=== PATIENT | male | born 1975 | race Caucasian/White ===

== ENCOUNTER 2019-06-09 17:31 | Emergency (ER) | payer BC, OTHER ==
[2019-06-09 17:42] VITALS: BP 134/81; PULSE 73; RESP 18; TEMP 98.8
== END 2019-06-09 17:57 | disposition home or self-care (01) ==
LOC: EC 17:31
DX: Z02.9 Encounter for administrative examinations, unspecified (principal)

== ENCOUNTER → 2020-01-04 | Outpatient (CLI) | payer BC ==
--- NOTE | 2020-01-04 13:41 | MR ---
EXAMINATION TYPE: MR shoulder RT wo con DATE OF EXAM: 01/04/2020 COMPARISON: None HISTORY: 44-year-old male with right shoulder pain, fell off ladder 2 months ago TECHNIQUE: Multiplanar, multisequence imaging of the right shoulder is performed without contrast. FINDINGS: There is intermediate signal of the intracapsular portion of the long head biceps tendon. The extraca psular portion remains appropriately situated along the bicipital groove. Mild heterogeneity of the subscapularis tendon which remains intact. There is some soft tissue replacement in the region of the rotator cuff interval. No abnormal thicken ing of the axillary recess. Trace effusion within the subacromial/subdeltoid bursa. Heterogeneity of both supraspinatus and infraspinatus tendons. There is bursal sided fraying of the s upraspinatus tendon with shallow bursal sided tear of the mid fibers measuring 6 mm long by 8 mm AP. There is intrasubstance change at the footprint at the junction of the supraspinatus and infraspinatu s tendons. No high-grade partial or full-thickness tear. Heterogeneous signal within the superior glenoid labrum. No paralabral cyst. Glenohumeral joint appears intact. No joint effusion. No atrophy of the rotator cuff musculature. No Hill-Sachs deformity. An os acromiale is present. There is some edema on either side of the pseudo articulation and some corresponding bony irregularity. Mild degenerative joint space narrowing at the AC joint. Patchy red marrow can be seen with red marrow reconversion in the setting of anemia, smoking, and chr onic disease. IMPRESSION: 1. Supraspinatus and infraspinatus tendinosis. Bursal sided fraying of the supraspinatus tendon along with a shallow 8 x 6 mm bursal sided tear of the mid fibers. No high-grade partial or full-thickness rotator cuff tear. 2. Irregular signal within the superior labrum. SLAP tear not excluded. 3. Os acromiale with some associated marrow edema on either side of the pseudoarticulation. Findings may be reactive to abnormal movement. Correlate for any symptomatology here. 4. Soft tissue replacement in the rotator cuff interval may reflect sprains of the biceps austen or s ynovitis. 5. Mild intracapsular long head biceps tendinosis.
== END | disposition home or self-care (01) ==
LOC: RADMRIMAIN 11:45
PROVIDERS: ATTEND Orthopaedic Surgery
DX: M75.21 Bicipital tendinitis, right shoulder (principal); Z96.611 Presence of right artificial shoulder joint; S43.431D Superior glenoid labrum lesion of right shoulder, subsequent encounter

== ENCOUNTER 2020-07-25 23:29 | Emergency (ER) | payer BC ==
--- NOTE | 2020-07-25 23:52 | ED ---
Arrhythmia/Palpitations HPI - General Chief Complaint: Arrhythmia/Palpitations Stated Complaint: Abnormal heart rate Time Seen by Provider: 07/25/20 23:47 Source: patient Mode of arrival: ambulatory Limitations: no limitations - History of Present Illness Initial Comments: 's patient is a 45-year-old man who presents to have evaluation for rapid heartbeat that had come on earlier in the day, then had resolved but seemed to recur this evening. The patient does note that the symptoms have resolved by the time he is seen here. The patient did have a similar experience previously, was seen by Dr. Ghosh from cardiology, and was told that if he was having recurrences they could offer an ablation. The patient does not believe he had atrial fibrillation. Review of the record does reveal Holter monitor from September 2014 which did show PACs and PVCs, but no sustained arrhythmia. The patient denies chest pain, dyspnea, diaphoresis, orthopnea, lightheadedness or syncope. MD Complaint: palpitations -: hour(s) Context: occurred during rest Arrhythmia History: other Associated Symptoms: denies other symptoms - Related Data Allergies Allergy/AdvReac Type Severity Reaction Status Date / Time Sulfa (Sulfonamide Allergy Unknown Verified 07/25/20 23:41 Antibiotics) Childhood Review of Systems ROS Statement: Those systems with pertinent positive or pertinent negative responses have been documented in the HPI. ROS Other: All systems not noted in ROS Statement are negative. Constitutional: Denies: fever, chills Respiratory: Denies: cough, dyspnea Cardiovascular: Reports: palpitations. Denies: chest pain, dyspnea on exertion, orthopnea, edema, syncope Gastrointestinal: Denies: abdominal pain, nausea, vomiting, melena, hematochezia Genitourinary: Denies: dysuria, hematuria Musculoskeletal: Denies: back pain Skin: Denies: rash Neurological: Denies: headache, weakness Past Medical History Past Medical History: No Reported History History of Any Multi-Drug Resistant Organisms: None Reported Past Surgical History: Orthopedic Surgery Past Psychological History: No Psychological Hx Reported Smoking Status: Never smoker Past Alcohol Use History: Occasional Past Drug Use History: None Reported General Exam Limitations: no limitations General appearance: alert, in no apparent distress Head exam: Present: atraumatic, normocephalic Eye exam: Present: normal appearance. Absent: scleral icterus, conjunctival injection ENT exam: Present: normal oropharynx Neck exam: Present: normal inspection, full ROM Respiratory exam: Present: normal lung sounds bilaterally. Absent: respiratory distress, wheezes, rales, rhonchi, stridor Cardiovascular Exam: Present: regular rate, normal rhythm, normal heart sounds. Absent: systolic murmur, diastolic murmur, rubs, gallop GI/Abdominal exam: Present: soft. Absent: distended, tenderness, guarding, rebound, rigid, mass Extremities exam: Present: normal inspection, normal capillary refill, other (There is no right arm swelling. No palpable cord or discomfort. His surgical site looks well-healed). Absent: pedal edema, calf tenderness Back exam: Present: normal inspection. Absent: CVA tenderness (R), CVA tenderness (L) Neurological exam: Present: alert Skin exam: Present: warm, dry, intact, normal color, other (The patient has 2 areas of fading ecchymoses over the shoulder at the site of his surgery 2 weeks ago). Absent: rash Course Vital Signs 07/25/20 07/25/20 23:36 23:55 Temperature 98.5 F Pulse Rate 85 88 Respiratory 18 16 Rate Blood Pressure 135/81 140/72 O2 Sat by Pulse 98 99 Oximetry EKG Findings - EKG Results: EKG: interpreted by ERMD, sinus rhythm (With sinus arrhythmia, rate 74 bpm), normal ST/T - Blocks, [place], Hypertrophy, ST Abn: QRS axis and voltage: left axis deviation (-30 to -90) - TN, Pacemaker, Normal: Myocardial infarction: inferior TN (old age indeterminate) (Possible old inferior infarct.) Disposition Clinical Impression: Palpitations Disposition: HOME SELF-CARE Condition: Good Instructions (If sedation given, give patient instructions): Heart Palpitations (ED) Is patient prescribed a controlled substance at d/c from ED?: No Referrals: Jonnie Parker MD [Primary Care Provider] - 1-2 days Evaristo Ghosh MD [STAFF PHYSICIAN] - 1-2 days
[2020-07-26 00:07] VITALS: PULSE 88
[2020-07-26 00:24] LABS: Basophils # (A) 0.1 k/uL (0-0.2); Basophils % (A) 1 %; Eosinophils # (A) 0.5 k/uL (0-0.7); Eosinophils % (A) 3 %; HCT 41.7 % (39.0-53.0); HGB 14.7 gm/dL (13.0-17.5); Lymphocytes # (A) 1.3 k/uL (1.0-4.8); Lymphocytes % (A) 10 %; MCH 31.2 pg (25.0-35.0); MCHC 35.2 g/dL (31.0-37.0); MCV 88.7 fL (80.0-100.0); Mean Platelet Volume 8.1; Monocytes # (A) 0.5 k/uL (0-1.0); Monocytes % (A) 4 %; Neutrophils # (A) 11.2 k/uL (1.3-7.7); Neutrophils % (A) 82 %; Platelet Count 201 k/uL (150-450); RDW 12.1 % (11.5-15.5); WBC 13.6 k/uL (3.8-10.6)
[2020-07-26 00:27] LABS: ALT 29 U/L (4-49); AST 26 U/L (17-59); African American GFR (CKD) >90 (>60 ml/min/1.73 sqM); Albumin 4.4 g/dL (3.5-5.0); Alkaline Phosphatase 85 U/L (38-126); Anion Gap 9 mmol/L; Blood Urea Nitrogen 23 mg/dL (9-20); Calcium 9.3 mg/dL (8.4-10.2); Carbon Dioxide 23 mmol/L (22-30); Chloride 108 mmol/L (98-107); Glucose 106 mg/dL (74-99); Magnesium 1.8 mg/dL (1.6-2.3); Non-African American GFR(CKD) >90 (>60 ml/min/1.73 sqM); Potassium 4.1 mmol/L (3.5-5.1); Sodium 140 mmol/L (137-145); Total Bilirubin 0.4 mg/dL (0.2-1.3); Total Protein 7.2 g/dL (6.3-8.2)
--- NOTE | 2020-07-26 00:27 | XR ---
EXAM: XR Chest, 2 Views CLINICAL HISTORY: Dysrhythmia. TECHNIQUE: Frontal and lateral views of the chest. COMPARISON: No previous studies. FINDINGS: Lungs: The lungs are well aerated. Pleural space: Unremarkable. No pneumothorax. Heart: Cardiomediastinal silhouette unremarkable. Mediastinum: See above. Bones/joints: The ribs are unremarkable. Alignment of the thoracic spine is unremarkable. Soft tissues: Soft tissues are within normal limits. IMPRESSION: 1. No active disease. 2. No cardiomegaly.
[2020-07-26 00:28] LABS: Partial Thromboplastin Time 22.1 sec (22.0-30.0); Prothrombin Time 10.3 sec (9.0-12.0)
[2020-07-26 01:43] VITALS: BP 129/72; RESP 17; TEMP 99
== END 2020-07-26 01:40 | disposition home or self-care (01) ==
LOC: EC 23:29
DX: R00.2 Palpitations (principal); S40.019A Contusion of unspecified shoulder, initial encounter; Z88.2 Allergy status to sulfonamides
CPT/HCPCS: 36415; 71046; 80053; 83735; 84484; 85025; 85610; 85730; 93005; 99285